=== PATIENT | female | born 1970 | race American Indian/Alaskan Native ===

== ENCOUNTER 2018-10-26 17:55 | Emergency (ER) | payer OTHER ==
[2018-10-26 19:51] LABS: Bacteria,Urine 1+ /HPF (Negative); Bilirubin,Urine NEG (Negative); Blood,Urine NEG (Negative); Color,Urine Amber (Yellow); Mucus,Urine 2+ /HPF
--- NOTE | 2018-10-26 19:58 | Emergency Department Report ---
HPI - General Chief Complaint: Dizziness Time Seen by Provider: 10/26/18 18:57 - HPI HPI: 48-year-old Afro-[place] female [place] [facility] [place] [facility] after feeling a headache, dizziness and feeling off balance and having trouble concentrating. The patient says that this happened in the past and usually it is due to her elevated blood pressure. She says that she was just recently diagnosed with hypertension and originally was placed on lisinopril but had an allergic reaction to this. She was switched to metoprolol about one month ago. Her primary care physician is Dr. Van. Currently the patient says that she feels much better. She denies any chest pain, fever, shortness of breath, nausea, vomiting or diaphoresis. She has not taken anything for her symptoms prior to presentation. ED Past Medical Hx - Past Medical History Previous Medical History?: Yes Hx Hypertension: Yes Hx Psychiatric Treatment: Yes (bipolar) - Surgical History Past Surgical History?: Yes Hx Cholecystectomy: Yes Additional Surgical History: tubes tied - Social History Smoking Status: Current Every Day Smoker Substance Use Type: None ED Review of Systems ROS: Stated complaint: HEADACHE/DIZZY Other details as noted in HPI Comment: All other systems reviewed and negative Constitutional: denies: chills, fever Eyes: denies: eye pain, vision change ENT: denies: ear pain, throat pain Respiratory: denies: cough, shortness of breath Cardiovascular: denies: chest pain, palpitations Gastrointestinal: denies: abdominal pain, vomiting Genitourinary: denies: dysuria, discharge Musculoskeletal: denies: back pain, arthralgia Skin: denies: rash, change in color Neurological: headache, other (dizziness) Physical Exam - Physical Exam Vital Signs: Vital Signs 10/26/18 18:12 Temperature 97.2 F L Pulse Rate 83 Respiratory 20 Rate Blood Pressure 168/100 Blood Pressure 168/100 [Right] O2 Sat by Pulse 98 Oximetry Physical Exam: GENERAL: The patient is well-developed well-nourished. HEENT: Normocephalic. Atraumatic. Patient has moist mucous membranes. EYES: Extraocular motions are intact. Pupils are equal and reactive to light bilaterally. No nystagmus. NECK: Supple. Trachea is midline. CHEST/LUNGS: Clear to auscultation. There is no respiratory distress noted. HEART/CARDIOVASCULAR: Regular. There is no tachycardia. There is no obvious murmur. ABDOMEN: Abdomen is soft, nontender. Patient has normal bowel sounds. There is no abdominal distention. SKIN: Skin is warm and dry. NEURO: The patient is awake, alert, and oriented. The patient is cooperative. The patient has no focal neurologic deficits. The patient has normal speech. Cranial nerves II through XII grossly intact. No pronator drift. No dysmetria. MUSCULOSKELETAL: There is no tenderness or deformity. There is no limitation range of motion. There is no evidence of acute injury. ED Course Vital Signs 10/26/18 18:12 Temperature 97.2 F L Pulse Rate 83 Respiratory 20 Rate Blood Pressure 168/100 Blood Pressure 168/100 [Right] O2 Sat by Pulse 98 Oximetry ED Medical Decision Making - Lab Data Result diagrams: 10/26/18 19:34 10/26/18 19:34 - EKG Data -: EKG Interpreted by Sc EKG shows normal: sinus rhythm, axis, intervals, QRS complexes, ST-T waves Rate: normal - EKG Data When compared to previous EKG there are: previous EKG unavailable Interpretation: normal EKG - Medical Decision Making Patient presents to the emergency department with some nonspecific dizziness, headache, difficulty with concentration. Since being in the emergency department, she has been awake, alert and does not appear in any acute distress. There are no focal, motor or sensory deficits in her cranial nerve VII intact. Labs have been unremarkable including CBC, metabolic panel, TSH, troponin. EKG is normal without ST elevation NV, ischemia or dysrhythmia. The patient was reevaluated multiple times for multiple hours and is feeling greatly improved. She denies any current headache, dizziness/lightheadedness. For these reasons I did not feel that CT imaging of the head was necessary at this time. Prior to discharge, the patient will see them during the emergency department and appears and feels stable. She has good follow-up with a primary care physician. She will return to the ER with any worsening of her symptoms or any acute distress. - Differential Diagnosis dysrhythmia, electrolyte abnormalities, thyroid dysfunction, hypoglycemia Critical Care Time: No Critical care attestation.: If time is entered above; I have spent that time in minutes in the direct care of this critically ill patient, excluding procedure time. ED Disposition Clinical Impression: Hypertension Qualifiers: Hypertension type: essential hypertension Qualified Code(s): I10 - Essential (primary) hypertension Headache Qualifiers: Headache type: unspecified Headache chronicity pattern: unspecified pattern Intractability: not intractable Qualified Code(s): R51 - Headache Disposition: DC-01 TO HOME OR SELFCARE Is pt being admited?: No Condition: Stable Instructions: Acute Headache (ED), Hypertension (ED), Lightheadedness (ED), Dizziness (ED) Additional Instructions: Please follow-up with your primary care physician in the next few days. Return to the emergency Department with any worsening of her symptoms or any acute distress. Try and stay away from foods that are high in salt and caffeinated products to help with her blood pressure. Keep a blood pressure log. Referrals: BHASKAR VAN DO [Primary Care Provider] - 2-3 Days Forms: Work/School Release Form(ED)
[2018-10-26 20:01] LABS: Basophils # (Auto) 0.1 K/mm3 (0.0-0.1); Eosinophils % (Auto) 0.6 % (0.0-4.3); Hematocrit 38.5 % (30.3-42.9); Hemoglobin 13.2 gm/dl (10.1-14.3); Lymphocytes # (Auto) 1.8 K/mm3 (1.2-5.4); Lymphocytes % (Auto) 35.3 % (13.4-35.0); Mean Corpuscular HGB Conc 34 % (30-34); Mean Corpuscular Volume 98 fl (79-97); Monocytes # (Auto) 0.4 K/mm3 (0.0-0.8); Monocytes % (Auto) 8.6 % (0.0-7.3); Platelet Count 272 K/mm3 (140-440); Red Blood Count 3.93 M/mm3 (3.65-5.03); Red Cell Distribution Width 13.6 % (13.2-15.2)
[2018-10-26 20:10] LABS: BUN/Creatinine Ratio 15; Blood Urea Nitrogen 9 mg/dL (7-17); Calcium 9.1 mg/dL (8.4-10.2); Hemolysis Index 13
[2018-10-26 22:19] VITALS: BP 158/87
== END 2018-10-26 22:22 | disposition home or self-care (01) ==
LOC: ED 17:55
DX: I10 Essential (primary) hypertension (principal); R42 Dizziness and giddiness; F17.200 Nicotine dependence, unspecified, uncomplicated; Z90.49 Acquired absence of other specified parts of digestive tract
CPT/HCPCS: 36415; 80048; 81001; 84443; 84484; 85025; 93005; 93010; 99284